=== PATIENT | male | born 1995 | race African-American/Black ===

== ENCOUNTER 2024-05-14 10:21 | Emergency (ER) | payer MEDICAID, SELFPAY ==
[2024-05-14] VITALS (25 sets, daily range): BP systolic 122–131; BP diastolic 69–79; PULSE 68–98; RESP 10–28; O2SAT 93–100
--- NOTE | 2024-05-14 10:15 | RT.EKG_ITS ---
APPROVED REPORT Exam: Resting ECG Reason for Exam: Shortness of breathe Patient Location: E HR:89 bpm ECG Measurements Heart Rate 89 AXIS NV 149 P 85 QRSd 85 QRS 74 QT 350 T 81 QTc 426 Conclusion Sinus rhythm, rate 89 Q wave V1, V2 No STEMI No priors available for comparison
[2024-05-14] MEDS: hydrOXYzine HCL 25 MG TAB PO (11:00)
[2024-05-14 11:02] LABS: Abs Immature Grans 0.01 10^3/uL (0.0-0.06); Absolute Basophil Count 0.05 10^3/uL (0.0-0.2); Absolute Eosinophil Count 0.08 10^3/uL (0.0-0.7); Absolute Lymphocyte Count 1.63 10^3/uL (1.2-3.4); Absolute Monocyte Count 0.32 10^3/uL (0.1-0.8); Absolute Neutrophil Count 1.57 10^3/uL (1.2-6.7); Basophils % 1.4 %; Eosinophils % 2.2 %; HCT 43.1 % (40.0-50.0); HGB 14.9 g/dL (13.5-17.5); Immature Grans % 0.3 %; Lymphocytes % 44.5 %; MCH 28.9 pg (27.0-33.0); MCHC 34.6 % (32.0-36.0); MCV 84 fL (80-95); MPV 8.6 fL (8.0-11.0); Monocytes % 8.7 %; Neutrophils % 42.9 %; Platelet Count 237 10^3/uL (130-400); RBC 5.15 10^6/uL (4.36-5.78); RDW 13.2 % (11.8-14.1); RDW-SD 40.8 fL; WBC 3.66 10^3/uL (4.4-10.8)
[2024-05-14 11:22] LABS: ALT 25 U/L (16-63); AST 37 U/L (15-37); Alkaline Phosphatase 98 U/L (46-116); Anion Gap 7.4 mmol/L (3-11); BUN 4 mg/dL (7-18); Bilirubin, Total 0.32 mg/dL (0.2-1.0); CO2 31.6 mmol/L (21.0-32.0); Calcium 8.8 mg/dL (8.5-10.1); Chloride 104 mmol/L (98-107); ETHANOL BLOOD 237.2 mg/dL (<10); Estimated GFR 103.19 (mL/min/1.73m2); Glucose 101 mg/dL (74-106); Magnesium 1.8 mg/dL (1.8-2.4); Potassium 3.9 mmol/L (3.5-5.1); Sodium 143 mmol/L (136-145); Total Protein 7.5 g/dL (6.4-8.2); Troponin I 8 ng/L (<or=76)
[2024-05-14] MEDS: Albuterol HFA 8 GM 60 PUFF INH IH (11:37)
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
[2024-05-14] MEDS: Inhaler, Assist Device 1 EACH MC (13:45)
== END 2024-05-14 14:05 | disposition home or self-care (01) ==
PROVIDERS: Emergency Provider Emergency Medicine
DX: F41.0 Panic disorder [episodic paroxysmal anxiety] (principal); F10.120 Alcohol abuse with intoxication, uncomplicated; F17.210 Nicotine dependence, cigarettes, uncomplicated; Y90.7 Blood alcohol level of 200-239 mg/100 ml
CPT/HCPCS: 36415; 80053; 93005; 99284; 80320; 83735; 84484; 85025; 93010

== ENCOUNTER 2024-05-19 21:54 | Emergency (ER) | payer MEDICAID, SELFPAY ==
[2024-05-19 21:54] VITALS: BP 144/95; PULSE 110; RESP 20; TEMP 37; O2SAT 96
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
--- NOTE | 2024-05-19 22:00 | DI.RAD_ITS ---
Exam(s) XR ELBOW LT COMPLETE EXAM: XR ELBOW LT COMPLETE CLINICAL HISTORY: trauma. TECHNIQUE: 2D digital imaging was performed. COMPARISON: No exams were available for comparison FINDINGS: 3 views There is the complete fracture through the olecranon fossa with significant distraction-displacement main fracture fragment with almost 2 cm distance between the fracture fragments. There is prominent soft tissue swelling over the elbow and olecranon bursa region.. There is no radiopaque foreign body . No osseous lesions. There is no dislocation of the elbow joint and the radial Radial head and neck appear intact as do the epicondyles of distal humerus. IMPRESSION: Displaced olecranon fossa fracture with 2 cm distraction of the main fracture fragment. Joint effusion noted-probable hemarthrosis DATA REPOSITORY: RADIATION DOSE DELIVERED:
[2024-05-19] MEDS: MORPHine IR 15 MG TAB 7.5 MG PO (23:14)
[2024-05-19] MEDS: MORPHine IR 15 MG TAB, 4 TABS/BTL PO (23:14)
[2024-05-19 23:29] VITALS: BP 137/68; PULSE 110; RESP 20; TEMP 37; O2SAT 96
--- NOTE | 2024-05-19 23:35 | NUR.NOTE ---
Discharge instructions provided in addition to opioid consent, pt was sent home with 4 tablets of IR morphine. Pt increasingly more agitated and anxious about setting up ride home. pt was informed about resources at this hour and that he was welcome to wait in the waiting room or independently set up a ride home. pt was escorted to waiting room with personal posessions.
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
--- NOTE | 2024-05-20 14:54 | NUR.NOTE ---
Nursing Note: Received call from patient that he feels hot/sweats and then chills. Patient wondering if this is a side effect of his cast being infected, a blood clot, or from the morphine. Pt has follow up with ortho [surgical procedure] tomorrow per pt. Pt was instructed this likely is not an infection so soon from his cast but he would need to be re-evaluated and can not be assessed over the phone. Pt is also concerned that his surgery needs to be rescheduled because it's the same day as his court date and he's afraid that he will get a warrant out on him if he doesn't go. Pt was urged to call the court and his guest relation officer about his surgery and a medical note could be provided for the court for his procedure.
== END 2024-05-19 23:33 | disposition home or self-care (01) ==
PROVIDERS: Emergency Provider Emergency Medicine
DX: S52.022A Displaced fracture of olecranon process without intraarticular extension of left ulna, initial encounter for closed fracture (principal); F17.210 Nicotine dependence, cigarettes, uncomplicated; V18.4XXA Pedal cycle driver injured in noncollision transport accident in traffic accident, initial encounter; Y93.55 Activity, bike riding; Y92.414 Local residential or business street as the place of occurrence of the external cause
CPT/HCPCS: 29105; 99283; 73080

== ENCOUNTER 2024-05-21 12:11 | Day surgery (SDC) | payer MEDICAID, SELFPAY | END 2024-05-21 12:12 | disposition home or self-care (01) | LOC: SUR 07-09 12:11 | PROVIDERS: Visit Provider Student in an Organized Health Care Education/Training Program | DX: Z53.09 Procedure and treatment not carried out because of other contraindication (principal) ==

== ENCOUNTER 2024-05-22 06:43 | Emergency (ER) | payer MEDICAID, SELFPAY ==
[2024-05-22 06:44] VITALS: BP 135/106; PULSE 90; RESP 22; TEMP 36.8; O2SAT 98
--- NOTE | 2024-05-22 07:19 | ED.GENADUL_ITS ---
Discharge Plan Disposition Patient Disposition: Home Condition: Good Discharge Details Clinical Impression: Aftercare for cast or splint check or change Primary Care Provider: Tracy,Local ED Provider: Ludwig Liz Home Meds and New Rx's Prescriptions: No Action clonidine HCl 0.1 mg tablet 0.1 mg PO DAILY hydroxyzine HCl 25 mg tablet 25 mg PO TID PRN30 Days Qty: 30 0RF Morphine Ir, 4 Tabs/Btl [Msir, 4 Tabs/Btl] 0.5 tab PO Q6H PRN (Reason: Severe Pain (Scale Score 7-10)) Qty: 4 0RF Discharge Instructions Additional Instructions: At this time your exam is reassuring and there is no evidence to suggest major blood clot, or neurovascular dysfunction. Please take 800 mg of ibuprofen every 6 hours, and 1000 mg of Tylenol every 6 hours. Please take the narcotic pill only as needed for breakthrough pain. Please promptly follow-up for your surgery on Monday. If you notice any worsening of your symptoms, or any new symptoms such as significant color changes in your fingers, if your fingers turn pale white or dark blue, if you develop a viselike sensation in your arm, vomiting, diarrhea, fever, chills, shortness of breath, chest pain, numbness, weakness, or fainting , please return immediately to the emergency department for reevaluation. Please follow up with your primary care provider as soon as possible for reassessment and reevaluation. As always, it was a pleasure participating in your medical care today. Referrals: Jelani Elder MD [ [facility] STAFF PHYSICIAN] - Jose Washington MD [ [facility] STAFF PHYSICIAN] - [facility] General Date/Time Provider Initiated Documentation: 05/22/24 07:04 . [facility] Narrative: This is a 29-year-old male who recently moved to the area, and was diagnosed 2 days ago here in the emergency department with olecranon fracture. He was discharged home with 4 morphine tablets to go, and scheduled for surgery yesterday. Unfortunately he was not able to make that surgery because of her required court appearance. Surgery has been rescheduled for Monday of this week which is an 2 days. He states that the pain has been persistent and he is running out of his morphine tablets. He admits to mild amount of swelling in his hand. He also admits to intermittent tingling that will happen in his fingers in certain positions with the splint on. He denies any current chest pain, shortness of breath, difficulty breathing, history of blood clots, known family history of blood clots, or other complaints. He denies any other modifying factors. He denies any viselike sensation on his arm or hand. He denies any significant color changes of his hand or fingers. Related Data Home Medications ?Medication ?Instructions ?Recorded ?Confirmed clonidine HCl 0.1 mg tablet 0.1 mg PO DAILY 05/14/24 05/22/24 hydroxyzine HCl 25 mg tablet 25 mg PO TID PRN 30 days #30 tabs 05/14/24 05/22/24 MORPHine IR, 4 tabs/btl [MSIR, 4 0.5 tab PO Q6H PRN Severe Pain 05/19/24 05/22/24 tabs/btl] (Scale Score 7-10) #4 tabs Previous Rx's ?Medication ?Instructions ?Recorded hydroxyzine HCl 25 mg tablet 25 mg PO TID PRN 30 days #30 tabs 05/14/24 MORPHine IR, 4 tabs/btl [MSIR, 4 0.5 tab PO Q6H PRN Severe Pain 05/19/24 tabs/btl] (Scale Score 7-10) #4 tabs Allergies Allergy/AdvReac Type Severity Reaction Status Date / Time amoxicillin Allergy Severe Anaphylaxis Verified 05/22/24 06:48 Penicillins Allergy Severe Anaphylaxis Verified 05/22/24 06:48 General Stated Complaint: Orthopedic KRISTINE: 4 Exam Narrative Exam Narrative: 1.Const: Well-nourished, Well-developed, appearing stated age 2.Eyes: PERRL, no conjunctival injection, and symmetrical lids. 3.ENT: Atraumatic external nose and ears. Moist MM. Neck: Symmetric, trachea midline, No thyromegaly. 4.CVS: +S1/S2, Peripheral pulses 2+ and equal in all extremities. Brisk capillary refill in all extremities. 5.RESP: Unlabored respiratory effort. Clear to auscultation bilaterally. No wheezes rales or rhonchi 6.GI: Soft, Nontender/Nondistended, No hepatosplenomegaly. No guarding or rebound. 7.MSK: Left arm is currently splinted, hand demonstrates minimal swelling around the fingers, no sausage shaped digits. Wrist capillary refill is present in all fingers, radial pulse +2 bilaterally. Normal sensation in all fingers and fingertips. Normal movement of all fingers. No tensile component of the hand or forearm to suggest compartment syndrome. Bony fracture itself was not palpated secondary to underlying potential for discomfort. Proximal component of the arm was thoroughly palpated, no atypical swelling. No vascular ropiness to suggest DVT. No atypical discolorations aside for mild bruising on the lateral aspect of the arm. 8.Skin: Warm, Dry. No rashes or lesions. 9.Neuro: c++ professor II-XII grossly intact. Sensation grossly intact, no focal neurologic deficits. 10.Psych: (AAO) x3. Appropriate mood and affect Course Vital Signs Vital signs: Vital Signs Temperature 36.8 C 05/22/24 06:44 Pulse 90 05/22/24 06:44 Respiratory Rate 22 05/22/24 06:44 Blood Pressure 135/106 H 05/22/24 06:44 Pulse Oximetry 98 05/22/24 06:44 Temperature 36.8 C 05/22/24 06:44 Pulse 90 05/22/24 06:44 Respiratory Rate 22 05/22/24 06:44 Blood Pressure 135/106 H 05/22/24 06:44 Blood Pressure Position Sitting 05/22/24 06:44 Pulse Oximetry 98 05/22/24 06:44 Oxygen Delivery Method Room Air 05/22/24 06:44 Oxygen Flow Rate 0 05/22/24 06:44 Pain Level 7 05/22/24 06:59 Medical Decision Making This is a 29-year-old male who recently moved to the area, and was diagnosed 2 days ago here in the emergency department with olecranon fracture. He was discharged home with 4 morphine tablets to go, and scheduled for surgery yesterday. Unfortunately he was not able to make that surgery because of her required court appearance. Surgery has been rescheduled for Monday of this week which is an 2 days. He states that the pain has been persistent and he is running out of his morphine tablets. He admits to mild amount of swelling in his hand. He also admits to intermittent tingling that will happen in his fingers in certain positions with the splint on. He denies any current chest pain, shortness of breath, difficulty breathing, history of blood clots, known family history of blood clots, or other complaints. He denies any other modifying factors. He denies any viselike sensation on his arm or hand. He denies any significant color changes of his hand or fingers. Physical exam demonstrates left arm is currently splinted, hand demonstrates minimal swelling around the fingers, no sausage shaped digits. Wrist capillary refill is present in all fingers, radial pulse +2 bilaterally. Normal sensation in all fingers and fingertips. Normal movement of all fingers. No tensile component of the hand or forearm to suggest compartment syndrome. Bony fracture itself was not palpated secondary to underlying potential for discomfort. Proximal component of the arm was thoroughly palpated, no atypical swelling. No vascular ropiness to suggest DVT. No atypical discolorations aside for mild bruising on the lateral aspect of the arm. With no evidence of significant DVT, with no evidence of compartment syndrome, with no evidence of neurovascular compromise, or other concerning abnormality, noted no vital sign abnormality to suggest PE, I do not see any further indication for management at this time. Patient's pain is not out of proportion. However with the nature of the fracture I certainly do understand the underlying pain that can continue when trying to sleep and rest. Because his surgery was delayed secondary to his legal necessities, we will give a second bottle of 4 morphine tablets for the next 48 hours. Recommend continued NSAID therapy with 1000 mg of Tylenol every 6 hours and 800 mg of ibuprofen every 6 hours. Discussed concerning red flags for which to return that would represent evidence of DVT, compartment syndrome, or other life-threatening etiology. Patient understands. Patient will return for his scheduled surgery. I have extensively reviewed the treatment plan and discharge instructions with the patient. I have addressed all patient concerns at this time. The patient was made aware of what symptoms to monitor for that would warrant a return to the emergency department. Discussed the plan with the patient, they demonstrate verbal understanding and agreement with our assessment and plan at this time. T he documentation in this chart was dictated using [employer] dictation software. Please excuse any dictation errors. Quality:SDOH Health Related Social Needs: No Data to Display PFSH All Active Problems (Updated 05/22/24 @ 07:21 by Ludwig Liz DO) Aftercare for cast or splint check or change (Acute) Fracture of left olecranon process (Acute) Closed fracture of left elbow (Acute) Alcohol intoxication (Acute) Medical History (Updated 05/22/24 @ 07:21 by Ludwig Liz DO) Asthma Panic disorder Social History Smoking/Tobacco Use Status: Current every day Tobacco Type: cigarettes and e- cigarettes Smoking risk assessment performed?: Yes Alcohol Intake: current Alcohol Intake frequency: 3 or more drinks per day Drug use: Occasionally Substance use type: marijuana Housing: other Do you feel safe at home: Yes Do you feel safe in your relationship?: Yes PAWSS Have you Been Recently Intoxicated or Drunk Within the Last 30 days?: Yes Have you Ever Experienced Previous Episodes of Alcohol Withdrawal?: No Have you ever Experienced Withdrawal Seizures?: No Have you ever Experienced Delirium Tremens(DT)s?: No Have you ever undergone Alcohol Rehabilitation Treatment (i.e, inpt ot outpatient treatment programs)?: No Have you ever Experienced Blackouts?: No Have you ever Combined Alcohol with other Downers within the last 90 days?: No Have you ever Combined Alcohol with any other Substance of Abuse during the last 90 days?: No Positive Blood Alcohol level on Presentation? [PCS.BAL]: No Evidence of Increased Autonomic Activity (i.e. HR>120, tremor, sweating, agit ation, nausea)?: No Result: 1
[2024-05-22] MEDS: MORPHine IR 15 MG TAB, 4 TABS/BTL PO (07:28)
[2024-05-22] MEDS: Acetaminophen 500 MG TAB 1000 MG PO (07:29)
== END 2024-05-22 07:34 | disposition home or self-care (01) ==
PROVIDERS: Emergency Provider Student in an Organized Health Care Education/Training Program
DX: S52.022D Displaced fracture of olecranon process without intraarticular extension of left ulna, subsequent encounter for closed fracture with routine healing (principal); X58.XXXD Exposure to other specified factors, subsequent encounter; R22.32 Localized swelling, mass and lump, left upper limb
CPT/HCPCS: 99283

== ENCOUNTER 2024-05-24 07:53 | Day surgery (SDC) | payer MEDICAID, SELFPAY ==
--- NOTE | 2024-05-21 16:53 | NUR.NOTE ---
1515: Pt called [facility] to report that he was upset about scheduled surgery on Monday (05/24/24) and that his elbow was getting worse and appeared to be growing in size with fluid and was very painful; also that he wondered if he could pay to wait in [facility] on Monday for a few hours until his friend would arrive to transport him home. Pt was instructed that he needed to arrange transportation with a responsible adult escort who could be available to get the pt home when appropriate post-operatively and be with him until the effects of anesthesia wore off, that he could not come to [facility] without transportation arrived and hang out until ride home available; pt verbalized frustration stating that if I had known that, I would have had surgery today. Of note, pt was scheduled for surgery this afternoon; pt called [facility] around 1050 to report that he wouldn't make it and would need to re-schedule. MD was made aware of pt situation. Pt again verbalized frustration and that he wasn't getting any information, and asked to speak to the ortho office; called transferred as requested; Dr. Washington made aware of situation. 1550: Pt called [facility] again and spoke to this RN and Tania Terrell RN and the pt reported that he was really scared now about the fluid in his elbow. These RNs reported to the pt that we didn't have an MD there at the time of the call, or a means to evaluate him properly and if he is really scared he should go to the ED or walk-in clinic. The pt then requested to just be put through to office and if it was the voicemail at the office that he may just call an ambulance. made aware and agreed with the plan offered by these RNs. Tyrel Guadalupe, RN [phone]
[2024-05-24] VITALS (26 sets, daily range): BP systolic 115–139; BP diastolic 46–88; PULSE 64–95; RESP 10–27; TEMP 36.2–36.8; O2SAT 96–100; BMI 21.2
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
--- NOTE | 2024-05-24 08:15 | PDOC.DSDIS_ITS ---
Date of service: 05/24/24 Discharge Plan Disposition Patient Disposition: Home Condition: Good Discharge Details Reason For Visit: Left olecranon process fracture Attending Provider: Jose Washington Primary Care Provider: ,Local Home Meds and New Rx's Prescriptions: New morphine 15 mg Tablet 15 mg PO Q4H PRN PRNQty: 15 0RF acetaminophen 500 mg tablet 1,000 mg PO Q8H PRN (Reason: pain) Qty: 90 3RF ibuprofen 600 mg tablet 600 mg PO TID PRN (Reason: pain) Qty: 90 3RF Continued clonidine HCl 0.1 mg tablet 0.1 mg PO DAILY hydroxyzine HCl 25 mg tablet 25 mg PO TID PRN30 Days Qty: 30 0RF Discontinued Morphine Ir, 4 Tabs/Btl [Msir, 4 Tabs/Btl] 0.5 tab PO Q6H PRN (Reason: Severe Pain (Scale Score 7-10)) Qty: 4 0RF Discharge Instructions Additional Instructions: ORIF Elbow Discharge Instructions Activity: You should stay in the splint and the sling for the first 2 weeks. Gentle motion and use of the hand, wrist, and fingers is okay and encouraged, but no repetitive activities nor heavy lifting. You may apply ice. You have no positioning restrictions. You may choose to go without the sling but the splint will stay until follow-up. Medications: - You should take Tylenol and Ibuprofen around the clock. - You have been prescribed Morphine for breakthrough pain. Dressings: - Your surgical dressing will be changed when the splint is removed at your first post-op visit. - You may shower after 3 days and get the wound wet. Follow-up: 10 days Referrals: Jose Washington MD [ [facility] STAFF PHYSICIAN] - Equipment/Supplies: Sling Activity:: Elevate Remove Dressings/Wound Care:: Do Not Remove Shower/Bathe:: Cover Diet:: As Tolerated Discharge Orders Discharge Orders: Discharge Order (Routine); Ordered 05/24/24 Ordered By: Autumn Keita DS: Diagnosis Discharge Diagnosis (1) Fracture of left olecranon process: Status: Acute
[2024-05-24] MEDS: Acetaminophen 500 MG TAB 1000 MG PO (08:22)
[2024-05-24] MEDS: Celecoxib 200 MG CAP 400 MG PO (08:22)
[2024-05-24] MEDS: oxyCODONE-CR 10 MG TABCR PO (08:23)
--- NOTE | 2024-05-24 08:36 | ANES.PREOP_ITS ---
General Info Date of Service Date Performed: 05/24/24 Height: 6 ft Weight: 71.1 kg Body Mass Index (BMI): 21.2 Surgical Procedure: Operation Date: 05/24/24 07:40 Proposed Procedure Side Surgeon ej Washington MD Meds Allergies and Home Medications Allergies Allergy/AdvReac Type Severity Reaction Status Date / Time amoxicillin Allergy Severe Anaphylaxis Verified 05/24/24 08:06 Penicillins Allergy Severe Anaphylaxis Verified 05/24/24 08:06 Home Medication ?Medication ?Instructions ?Recorded clonidine HCl 0.1 mg tablet 0.1 mg PO DAILY 05/14/24 hydroxyzine HCl 25 mg tablet 25 mg PO TID PRN 30 days #30 tabs 05/14/24 MORPHine IR, 4 tabs/btl [MSIR, 4 0.5 tab PO Q6H PRN Severe Pain 05/19/24 tabs/btl] (Scale Score 7-10) #4 tabs Current Visit Medications: Current Medications Generic Name Dose Route Start Last Admin Trade Name Freq PRN Reason Stop Dose Admin Acetaminophen 1,000 mg 05/24/24 06:00 05/24/24 08:22 Acetaminophen 500 Mg Tab PO 05/24/24 23:59 1,000 mg PREOP MIGUEL Administration Acetaminophen 650 mg 05/24/24 08:13 Acetaminophen 325 Mg Tab PO 06/23/24 08:12 Q4H PRN PRN Hydrocodone Bitart/Acetaminophen 0 tab 05/24/24 08:13 Hydrocodone 5/Acetaminophen 325 Tab PO 06/23/24 08:12 Q3H PRN PRN Pain Celecoxib 400 mg 05/24/24 06:00 05/24/24 08:22 Celecoxib 200 Mg Cap PO 05/24/24 23:59 400 mg PREOP MIGUEL Administration Cefazolin Sodium/Dextrose 2 gm in 50 mls @ 100 mls/hr 05/24/24 06:00 Ancef Duplex IVPB 05/24/24 23:59 PREOP MIGUEL Tranexamic Acid/Sodium Chloride 1,000 mg in 100 mls @ 600 mls/hr 05/24/24 06:00 IVPB 05/24/24 23:59 PREOP MIGUEL Ringer's Solution 1,000 mls @ 80 mls/hr 05/24/24 07:00 IV 06/23/24 06:59 INFUSION MIGUEL IV Miscellaneous Supplies 1 each 05/24/24 06:00 Iv Access IV 05/24/24 23:59 DIRECTED MIGUEL Sodium Chloride 0 ml 05/24/24 06:00 Normal Saline Flush 10 Ml Syr IV 05/24/24 23:59 PRN PRN Sodium Chloride 0 ml 05/24/24 06:00 Normal Saline 10 Ml Vial IJ 05/24/24 23:59 DIRECTED PRN Sterile Water 0 ml 05/24/24 06:00 Water,Injection,Sterile 10 Ml Vial IJ 05/24/24 23:59 DIRECTED PRN PFSH Active Problems Active Problems: Problem Status Onset Code Aftercare for cast or splint check or change Acute Z47.89 Fracture of left olecranon process Acute S52.022A Closed fracture of left elbow Acute S42.402A Alcohol intoxication Acute F10.929 Medical History Medical History Asthma Panic disorder Tobacco Smoking/Tobacco Use Status: Current every day Tobacco Type: cigarettes and e- cigarettes Alcohol Alcohol Intake: current Alcohol intake frequency: 3 or more drinks per day Substance Use Substance use: Occasionally Substance use type: marijuana Vital Signs and Lab Results Vital Signs Most Recent Vital Signs in EMR: Most Recent Vital Signs Temp Pulse Resp BP Pulse Ox 36.8 C 74 18 123/60 97 05/24/24 08:00 05/24/24 08:00 05/24/24 08:00 05/24/24 08:00 05/24/24 08:00 Lab Results Blood Type / Crossmatch: No Data to Display Complete Blood Count: White Blood Count 3.66 10^3/uL (4.4-10.8) L 05/14/24 10:50 Red Blood Count 5.15 10^6/uL (4.36-5.78) 05/14/24 10:50 Hemoglobin 14.9 g/dL (13.5-17.5) 05/14/24 10:50 Hematocrit 43.1 % (40.0-50.0) 05/14/24 10:50 Platelet Count 237 10^3/uL (130-400) 05/14/24 10:50 Complete Metabolic Panel: Sodium 143 mmol/L (136-145) 05/14/24 10:50 Potassium 3.9 mmol/L (3.5-5.1) 05/14/24 10:50 Chloride 104 mmol/L (98-107) 05/14/24 10:50 Carbon Dioxide 31.6 mmol/L (21.0-32.0) 05/14/24 10:50 BUN 4 mg/dL (7-18) L 05/14/24 10:50 Creatinine 1.0 mg/dL (0.70-1.30) 05/14/24 10:50 Est GFR (CKD-EPI 2020) 103.19 (mL/min/1.73m2) 05/14/24 10:50 Magnesium 1.8 mg/dL (1.8-2.4) 05/14/24 10:50 Calcium 8.8 mg/dL (8.5-10.1) 05/14/24 10:50 Albumin 4.0 g/dL (3.4-5.0) 05/14/24 10:50 Glucose 101 mg/dL (74-106) 05/14/24 10:50 Liver Function Panel: Alanine Aminotransferase (ALT/SGPT) 25 U/L (16-63) 05/14/24 10: 50 Aspartate Amino Transf (AST/SGOT) 37 U/L (15-37) 05/14/24 10:50 Coagulation Panel: No Data to Display Cardiac Panel: Troponin I 8 ng/L (<or=76) 05/14/24 Arterial Blood Gas: No Data to Display Venous Blood Gas: No Data to Display Pancreas Panel: No Data to Display Thyroid Panel: No Data to Display Infectious Disease: No Data to Display Blood Cultures: No Data to Display Toxicology Panel: Ethyl Alcohol Level 237.2 mg/dL (<10) H 05/14/24 10:50 Anesthesia Assessment and Plan Anesthesia History Personal History: No History of General Anesthesia Family History: No Family History of Anesthesia Complications Exercise Tolerance Exercise Tolerance: Metabolic Equivalents>4 Pertinent Negatives Pertinent Negatives: No Symptoms of GERD Cardiac & Pulmonary Exam Cardiac Exam: Normal S1/S2 Heart Sounds Pulmonary Exam: Clear Bilateral Breath Sounds Implantable Cardiac Device Does patient have a Pacemaker or an ICD?: No Airway Exam Known Difficult Airway: No Mallampati Class: 2 Mouth Opening: Normal (> 3cm) Thyromental Distance: Greater than 3 cm Neck Range of Motion: Full ROM Neck Circumference: Normal Teeth Condition: Normal Dentition ASA Classification ASA Score: ASA 2 Emergency Case?: No NPO Status NPO Status: NPO Clears >2 hours, Solids >8 hours Anesthesia Plan Resuscitation Status: Full Code Anesthesia Technique: General Anesthesia Airway Planned: Endotracheal Tube Pain Management: Surgeon and patient request nerve block Monitors Used: Standard Monitors
[2024-05-24] MEDS: Lactated Ringers 1,000 ML 80 ML IV (08:46)
[2024-05-24] MEDS: ceFAZolin 2 GM/50 ML BAG IVPB (09:22)
[2024-05-24] MEDS: TRANEXAMIC ACID/SOD. CHL. 1,000 MG/100 ML BAG 600 MG IVPB (09:29)
--- NOTE | 2024-05-24 09:47 | W.ANESNERVE ---
Nerve Block Single Injection Procedure Date and Time Date Performed: 05/24/24 Procedure Start: 08:59 Location Where Procedure Performed Procedure Location: Day Surgery Unit Reason Performed: Postoperative Analgesia Requesting Provider: Jose Washington Timeout Performed Timeout Performed: Yes Monitoring Used ECG, Blood Pressure, SpO2 and See EMR for corresponding vital signs Sterility Sterility: Hand Hygiene, Surgical Cap, Surgical Mask, Sterile Gloves, Eye Protection and Chlorhexidine Sedation Given During Procedure Sedation Given (Indicate Dose Given): Versed IV Dose:: 4mg IVP and Fentanyl IV Dose:: 25mcg IVP Patient Mental Status Patient Mental Status: Sedate with meaningful communication Nerve Block 1st Nerve Block: Laterality: Left Block Type: Supraclavicular Ultrasound Image Saved?: Yes Needle / Catheter Used: 100mm SonoPlex II Local Anesthetic Bolus (Indicate Dose Given): Lidocaine used for local infiltration of skin, Injected in 3-5ml increments after negative blood aspiration and Ropivacaine 0.5% Dose:: 0.5%/25cc (125mg) Additives (Indicate Dose Given): Epinephrine to make 1:200,000 (5mcg/ml) Dose:: 125mcg and Decadron Dose:: 10mg PF Ultrasound: Sterile probe cover and gel used Nerve Stimulator: Not Used Paresthesia: None Procedure Tolerated: No Complications and Patient tolerated well Procedure Outcome: Successful Performed By: Joel Littlejohn
--- NOTE | 2024-05-24 10:10 | DI.RAD_ITS ---
Exam(s) XR ELBOW LT LIMITED EXAM: XR ELBOW LT LIMITED CLINICAL HISTORY: left olecranon fracture. TECHNIQUE: 2D digital imaging was performed. COMPARISON: No exams were available for comparison FINDINGS: Intraoperative fluoroscopy provided during ORIF left olecranon on elbow fracture. See procedure repo rt for details. Total fluoroscopy time 11.7 seconds IMPRESSION: Radiation exposure index/cumulative dose:Ka,r= 0.2471 mGy DATA REPOSITORY: RADIATION DOSE DELIVERED:
--- NOTE | 2024-05-24 10:34 | ROE_ITS ---
Operative Note Operative Note PRE-OP DIAGNOSIS: Left Displaced Olecranon Fracture POST-OP DIAGNOSIS: same PROCEDURE: Open reduction internal fixation of left olecranon fracture SURGEON: Jose Washington DESIGN ASSEMBLER: Carlota Schwab ANESTHESIA TYPE: General LMA/ETT Refer to Anesthesia Record ESTIMATED BLOOD LOSS: 10 PATHOLOGY: none sent TOURNIQUET TIME: 0 COMPLICATIONS: None Patient was transported to: PACU Patient's condition: stable Implants: 7.3mm cannulated screw, 130mm length Indications: Rommel is a 29-year-old male who fell onto his left elbow suffering a displaced left olecranon fracture. Given the displaced nature of the fracture I recommended proceeding with operative fixation. I discussed the technical de tails of the surgery. I reviewed the risk to include bleeding, infection, pain, stiffness, hardware prominence, hardware failure, damage nerves and vessels, wound healing difficulties. Despite these risks, he elected to proceed. Findings: There is a displaced proximal ulna, olecranon, fracture which was able to be reduced and secured with K wires followed by 7.3 mm cannulated screw Procedure Description: Rommel was greeted in the preoperative holding area. His identity was confirmed the correct site was identified and marked. The consent was reviewed the patient and signed. History and physical was performed. A supraclavicular block was performed by Joel Littlejohn CRNA, in the DSU area. This was tolerated well and then he was taken back to the operating room. He is placed in the supine position on the operating room table. General anesthetic was administered. The left arm was prepped with ChloraPrep after removing the splint. This was then draped in a standard fashion. Prophylactic antibiotics in the form of cefazolin were administered. A timeout performed for safe surgery. The proposed surgical site was then anesthetized with 0.25% bupivacaine. This incision site was opened with sharp dissection. Blunt dissection carried down to the deeper layers of the hematoma was encountered and the fracture was readily apparent. Fascia was opened up to evaluate the fracture edges. There is abundant amount of clot in this region. This was evacuated. The joint was inspected and showed no loose bodies. Fracture edges were thoroughly rinsed and cleaned for adequate visualization. There is 1 primary transverse fracture line through the olecranon and no other loose pieces. I direct reduction was then performed by slightly extending the elbow mainly reducing the olecranon back to its bony bed. This was secured with 2 small K wires medially and laterally. X- ray was used to confirm appropriate reduction of the fracture fragment. With this held in the reduced position the K wire from the 7.3 mm cannulated screw system was then advanced through the tip the olecranon into the ulnar shaft. This was advanced until head and some resistance. X-ray showed appropriate positioning within the length of the ulna. The triceps was split longitudinally approximately 1 and half centimeters centered over the K wire. The course of the K wire was then drilled. A tap was utilized to tap the course of the screw until resistance was had. When there is excellent resistance the tap was advanced 5-6 more turns until was very difficult to turn the tap at all. A tap was marked in this location for later measuring. The tap was removed and the distance of the tap was measured at 130 mm. A 130 mm 7.3 mm cannulated screw was then selected with a washer. This was advanced down over the K wire until there was excellent purchase. The washer was shoehorn under the triceps down onto the bone. The screw was finally tightened with excellent compression to the fracture site. K wires were removed. X-ray was obtained which showed adequate reduction of the fracture. The wounds then thoroughly irrigated. The periosteal tissue was injected with 0.25% bupivacaine. The deep fascia was reapproximated with #1 Vicryl. The deep tissues were closed with 2-0 Vicryl. The skin was closed with 3-0 and 4-0 nylon. The wound was dressed with Xeroform, 4 x 4's, ABD, Webril. A short arm posterior slab splint was applied. At the end the case all counts were correct. He is transferred back to the PACU in stable condition. Date of Procedure: 05/24/24
--- NOTE | 2024-05-24 12:34 | W.ANESPOSTOP ---
Postoperative Evaluation Date, Time and Location Date Performed: 05/24/24 Time Performed: 12:34 Patient Location: Day Surgery Unit Vital Signs Most Recent Imported Vital Signs: Most Recent Vital Signs Temp Pulse Resp BP Pulse Ox 36.2 C L 74 16 126/73 97 05/24/24 11:25 05/24/24 11:25 05/24/24 11:25 05/24/24 11:25 05/24/24 11:25 Pain Score Most Recent Pain Score: Most Recent Pain Score Pain Level 0 05/24/24 11:25 Assessment Mental Status: Arousable with meaningful communication Airway and Respiratory Function: Patent airway with normal (patient baseline) respiratory exam Cardiovascular Function: Hemodynamically Stable Hydration Status: Adequately Hydrated Nausea & Vomiting: No Nausea or Vomiting Pain: Pt. Denies Any Pain Peripheral Nerve Block: Regional nerve block not resolved at time of post operative discharge
--- NOTE | 2024-05-24 14:00 | PDOC.CMPRO ---
Date of service: 05/24/24 Time of Service: 14:00 Care Management Progress Note Progress Note Text Progress Note Text: CM met with Rommel post surgically, at the request of staff in day surgery. Per report, Rommel has been having difficulty with transportation, which interfered with his surgery today, as he was two hours late to arrive. Rommel was sitting up in bed when CM met with him. He was pleasant and appropriate in conversation. He stated that he is new to the area, from [place], [place]. He was placed at the [facility] for emergency half-way, and stated that he expects to be able to stay there until . Cold weather housing is in effect until 08/19/24, and then he stated that he has up to 80 days of assistance with emergency housing after that. He stated that he found employment that was supposed to begin next week, but due to his injury he will not be able to start working until after he recovers from surgery; he reported that he is in contact with the employer ([employer]ina [employer]), who has offered to employ him after his recovery. He stated that he has had trouble with transportation and would benefit from support coordinating rides to/from his follow up appointments. He reported that he has a PCP in [place], but would like to change to a more local PCP, as he plans to be living in this area. He stated that he has struggled with sobriety from alcohol, and recently relapsed due to depression. He stated that he has not been drinking since being prescribed pain medication, as he understands that it is not advised and it is dangerous to mix alcohol and pain medication, exhibiting good insight and judgment. He reported that he does not have a therapist currently. CM discussed sending referrals to [facility] and [facility] ([facility]) with Rommel, who is agreeable to both referrals. Referrals were sent to both agencies, requesting support with coordination of resources in the community, including transportation, housing, general assistance, PCP connection and mental health support. Rommel was discharged and a friend drove him home via private vehicle. He was agreeable to the plan and is looking forward to connecting with [facility] and [facility], likely next week.
--- NOTE | 2024-05-24 18:29 | NUR.NOTE ---
1715: Pt. called DSU asking if he was going to open up his incision if he did stuff with his arm. Nursing asked pt. to read DC paperwork to her, pt. read activity level per MD. Nursing instructed pt. if he followed MD instructions he would more than likely be fine but if he had any issues he could contact MD. Pt. also asking when he should take his pain medications, nursing had pt. read DC instructions and talked with pt. about his next doses of baseline pain medications, pt. verbalized understanding. Nursing Note:
== END 2024-05-24 13:45 | disposition home or self-care (01) ==
PROVIDERS: Visit Provider Student in an Organized Health Care Education/Training Program
PROC: (CPT 24685; principal; 2024-05-24 07:30)
DX: S52.022A Displaced fracture of olecranon process without intraarticular extension of left ulna, initial encounter for closed fracture (principal); G89.18 Other acute postprocedural pain; M25.522 Pain in left elbow; F41.0 Panic disorder [episodic paroxysmal anxiety]; J45.909 Unspecified asthma, uncomplicated; F17.210 Nicotine dependence, cigarettes, uncomplicated; F10.90 Alcohol use, unspecified, uncomplicated; W19.XXXA Unspecified fall, initial encounter
CPT/HCPCS: 24685; 64415; 76000; 73070; J0171; J0690; J1100; J2003; J2250; J2405; J2704; J3010

== ENCOUNTER 2024-05-25 08:13 | Emergency (ER) | payer MEDICAID, SELFPAY ==
[2024-05-25 08:19] VITALS: BP 156/104; PULSE 104; RESP 18; O2SAT 99
--- NOTE | 2024-05-25 08:29 | ED.GENADUL_ITS ---
Discharge Plan Disposition Patient Disposition: Home Condition: Stable Discharge Details Clinical Impression: Post-operative pain Primary Care Provider: [facility] Provider: Ludwig Hayes Home Meds and New Rx's Prescriptions: Continued clonidine HCl 0.1 mg tablet 0.1 mg PO DAILY hydroxyzine HCl 25 mg tablet 25 mg PO TID PRN30 Days Qty: 30 0RF morphine 15 mg Tablet 15 mg PO Q4H PRN PRNQty: 15 0RF acetaminophen 500 mg tablet 1,000 mg PO Q8H PRN (Reason: pain) Qty: 90 3RF ibuprofen 600 mg tablet 600 mg PO TID PRN (Reason: pain) Qty: 90 3RF Discharge Instructions Instructions: Managing pain after surgery, Opioids for Short-Term Treatment of Pain ED Additional Instructions: You were seen in the emergency department for your postoperative pain, you have no signs of neurovascular compromise to your left arm. You need to follow-up with Dr. Washington's office for long-term management of pain, we can provide you with a few tablets of hydromorphone today for breakthrough pain, you need to ice your injury and take Tylenol and ibuprofen as well at the recommended dosing intervals of 6 hours each. Please return to the emergency department for signs of neurovascular compromise to the left arm including coolness of the hand, paresthesia inability to move the hand whatsoever. Stand Alone Forms: Work Release Referrals: [facility] [Provider Group] Discharge Data Discharge Date/Time-TO BE ENTERED AT DEPARTURE: 05/25/24 09:05 HPI General Date/Time Provider Initiated Documentation: 05/25/24 08:18 . HPI Narrative: 29 year-old male presents to ED today by POV/ambulating with a chief complaint of post-operative pain, highly anxious individual, given 3 days of morphine and burned through his supply, has been calling house officer for pain control nonstop overnight. Quality described as painful to L elbow, no radiation to com plete numbness, poikilothermia, paresthesia. Severity is described as 10/10. Palliating factors include taking his morphine, states he is immune now. Provoking factors include nerve block wore off. Patient not anticoagulated. Related Data Home Medications ?Medication ?Instructions ?Recorded ?Confirmed clonidine HCl 0.1 mg tablet 0.1 mg PO DAILY 05/14/24 05/25/24 hydroxyzine HCl 25 mg tablet 25 mg PO TID PRN 30 days #30 tabs 05/14/24 05/25/24 acetaminophen 500 mg tablet 1,000 mg (2 x 500 mg) PO Q8H PRN 05/24/24 05/25/24 pain #90 tabs ibuprofen 600 mg tablet 600 mg PO TID PRN pain #90 tabs 05/24/24 05/25/24 morphine 15 mg immediate release 15 mg PO Q4H PRN PRN #15 tabs 05/24/24 05/25/24 tablet Previous Rx's ?Medication ?Instructions ?Recorded hydroxyzine HCl 25 mg tablet 25 mg PO TID PRN 30 days #30 tabs 05/14/24 acetaminophen 500 mg tablet 1,000 mg (2 x 500 mg) PO Q8H PRN 05/24/24 pain #90 tabs ibuprofen 600 mg tablet 600 mg PO TID PRN pain #90 tabs 05/24/24 morphine 15 mg immediate release 15 mg PO Q4H PRN PRN #15 tabs 05/24/24 tablet Allergies Allergy/AdvReac Type Severity Reaction Status Date / Time amoxicillin Allergy Severe Anaphylaxis Verified 05/25/24 08:21 Penicillins Allergy Severe Anaphylaxis Verified 05/25/24 08:21 General Stated Complaint: Orthopedic KRISTINE: 3 Review of Systems All systems reviewed & are unremarkable except as noted in HPI and below Exam Narrative Exam Narrative: GENERAL APPEARANCE: Well-nourished, non-toxic, awake and alert, atraumatic, no acute distress. SKIN: Warm, pink, dry, intact, without rashes/lesions/ulcerations. HEAD: Normocephalic, atraumatic, normal hair distribution for gender/age. EYES: Normal conjunctiva, no exudates on lids/lashes. ENT: Nares patent, no circumoral cyanosis, no facial swelling NECK: Supple, trachea midline, painless cervical ROM. LUNGS/CHEST: Non-labored respirations, normal A/P diameter, symmetrical expansion, no chest wall deformity HEART (CV/PV): Regular rate and rhythm without murmur, no peripheral edema, no JVD. ABDOMEN: Soft, non-distended, no guarding. MSK: Normal ROM, no swelling/deformity to bilateral UEs or LEs, moving all extremities without weakness, no cyanosis, spine midline without tenderness, normal curvature, L radial pulse 2+, L UE in sling, no firmness to forearm compartments, sensation intact, brisk capillary refilll, no poikilothermia NEURO: Mental Status AAOx4 - alert to person, place, time, events No facial droop, no forehead involvement. Motor: No focal weakness - strength 5/5 in bilateral UEs and LEs, proximal and distal, symmetric. Sensory: sensation intact to light touch globally. Gait normal: patient ambulated without ataxia into ED room. PSYCH: euthymic, cooperative, pleasant, appropriate speech Course Vital Signs Vital signs: Vital Signs Pulse 104 H 05/25/24 08:19 Respiratory Rate 18 05/25/24 08:19 Blood Pressure 156/104 H 05/25/24 08:19 Pulse Oximetry 99 05/25/24 08:19 Pulse 104 H 05/25/24 08:19 Respiratory Rate 18 05/25/24 08:19 Blood Pressure 156/104 H 05/25/24 08:19 Blood Pressure Position Sitting 05/25/24 08:19 Pulse Oximetry 99 05/25/24 08:19 Oxygen Delivery Method Room Air 05/25/24 08:19 Oxygen Flow Rate 0 05/25/24 08:19 Medical Decision Making This dictation utilizes [id number] dictation software and may contain unedited grammatical errors. 29 year-old male presents to ED today by POV/ambulating with a chief complaint of post-operative pain, highly anxious individual, given 3 days of morphine and burned through his supply, has been calling house officer for pain control nonstop overnight. Quality described as painful to L elbow, no radiation to complete numbness, poikilothermia, paresthesia. Severity is described as 10/10. Palliating factors include taking his morphine, states he is immune now. Provoking factors include nerve block wore off. Patients' medical history: Panic disorder. Family and social history: Noncontributory, does drink alcohol and was intoxicated when the injury happened. Pertinent exam findings / vital signs include patient comfortably resting in sling, highly anxious, left radial pulse 2+, forearm compartments not firm, no poikilothermia, sensation intact. Differential / pathologies of concern include postoperative pain, not compartment syndrome, not neurovascular compromise. Diagnostic studies of: -none. Interventions of: -2mg hydromorphone short supply to go. ED Course/Assessment/Plan: 29-year-old male with panic disorder presents with postoperative pain, he is taken all of his morphine and states that he just cannot cope with any more pain, I did discuss this with his orthopedic surgeon Dr. Washington I recommend the patient get some close follow-up but unlikely to be any neurovascular compromise at this time, the patient needs to perform RICE therapy as this is much more effective than pharmacologic therapy, patient requests a note for his environmental technical officer which I did provide unsure if they will accept. Findings not consistent with compartment syndrome, NV compromise. Disposition of Post-operative pain. Patient verbalized understanding of the plan and return to ED criteria and engaged in shared decision making. Medical Records Medical records reviewed: Yes I reviewed the patient's medical records. Quality:SDOH Health Related Social Needs: No Data to Display PFSH All Active Problems (Updated 05/25/24 @ 08:36 by NANCY Rouse) Post-operative pain (Acute) Aftercare for cast or splint check or change (Acute) Fracture of left olecranon process (Acute) Closed fracture of left elbow (Acute) Alcohol intoxication (Acute) Medical History Asthma Panic disorder Social History Smoking/Tobacco Use Status: Current every day Tobacco Type: cigarettes and e- cigarettes Smoking risk assessment performed?: Yes Alcohol Intake: current Alcohol Intake frequency: 3 or more drinks per day Drug use: Occasionally Substance use type: marijuana Housing: other Do you feel safe at home: Yes Do you feel safe in your relationship?: Yes PAWSS Have you Been Recently Intoxicated or Drunk Within the Last 30 days?: No Have you Ever Experienced Previous Episodes of Alcohol Withdrawal?: No Have you ever Experienced Withdrawal Seizures?: No Have you ever Experienced Delirium Tremens(DT)s?: No Have you ever undergone Alcohol Rehabilitation Treatment (i.e, inpt ot outpatient treatment programs)?: No Have you ever Experienced Blackouts?: No Have you ever Combined Alcohol with other Downers within the last 90 days?: No Have you ever Combined Alcohol with any other Substance of Abuse during the last 90 days?: No Positive Blood Alcohol level on Presentation? [PCS.BAL]: No Evidence of Increased Autonomic Activity (i.e. HR>120, tremor, sweating, agitation, nausea)?: No Result: 0
[2024-05-25] MEDS: HYDROmorphone 2 MG TAB 8 MG PO (08:56)
[2024-05-25 09:03] VITALS: BP 132/65; PULSE 74; RESP 16; O2SAT 98
== END 2024-05-25 09:05 | disposition home or self-care (01) ==
PROVIDERS: Emergency Provider Physician Assistant
DX: M25.522 Pain in left elbow (principal); G89.18 Other acute postprocedural pain; F17.210 Nicotine dependence, cigarettes, uncomplicated
CPT/HCPCS: 99283

== ENCOUNTER 2024-05-28 23:53 | Emergency (ER) | payer MEDICAID, SELFPAY ==
--- NOTE | 2024-05-28 23:45 | DI.RAD_ITS ---
Exam(s) XR ELBOW LT COMPLETE EXAM: XR ELBOW LT COMPLETE CLINICAL HISTORY: post op/pain. TECHNIQUE: 2D digital imaging was performed of the left elbow. Three images were obtained. AP, lat eral and oblique views were obtained. COMPARISON: CR,XR XR ELBOW LT COMPLETE from 05/19/2024 XA XR ELBOW LT LIMITED from 05/24/2024 FINDINGS: BONES: There is again seen an orthopedic screw transfixing the olecranon fracture. Alignment appears stable compared to the intraoperative films from 05/24/2024. No new fracture is seen. No bony destru ctive lesion is seen. JOINTS: The elbow is normally aligned. There is a small joint effusion. SOFT TISSUE: There is mild soft tissue swelling. IMPRESSION: No acute abnormality. Stable postsurgical changes. DATA REPOSITORY: RADIATION DOSE DELIVERED:
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
[2024-05-28 23:50] VITALS: BP 137/101; PULSE 91; RESP 16; TEMP 37.1; O2SAT 99
[2024-05-29] MEDS: HYDROmorphone 2 MG TAB PO (00:02)
--- NOTE | 2024-05-29 01:47 | DI.VRAD_ITS ---
PROCEDURE INFORMATION: Exam: XR Left Elbow Exam date and time: 05/29/2024 12:15 AM Age: 29 years old Clinical indication: Pain; Elbow; Left; Prior surgery; Surgery date: 3-7 days post-operative; Surgery type: Post FX screw placement TECHNIQUE: Imaging protocol: Radiologic exam of the left elbow. Views: 3 or more views. COMPARISON: XA XR ELBOW LT LIMITED 05/24/2024 10:01 AM FINDINGS: Bones/joints: Postsurgical screw within the proximal ulna for olecranon fracture, the fracture fragments are in anatomical alignment. Soft tissues: Small elbow joint effusion and posterior elbow soft tissue edema. IMPRESSION: 1. Postsurgical screw within the proximal ulna for olecranon fracture, the fracture fragments are in anatomical alignment. 2. Small elbow joint effusion and posterior elbow soft tissue edema. Dictated and Authenticated by: Sonal Coley MD. Ordering:ISAIAH Leon MD
== END 2024-05-29 01:47 | disposition home or self-care (01) ==
PROVIDERS: Emergency Provider Emergency Medicine
DX: M25.522 Pain in left elbow (principal); G89.18 Other acute postprocedural pain; F17.210 Nicotine dependence, cigarettes, uncomplicated; F17.290 Nicotine dependence, other tobacco product, uncomplicated
CPT/HCPCS: 99283; 73080